=== PATIENT | female | born 2000 | race Caucasian/White ===

== ENCOUNTER 2021-08-06 03:50 | Emergency (ER) | payer OTHER ==
[~2021-08-06 03:50] MED LIST: BACTRIM DS TAB1 EACH PO; BENTYL 20MG TAB20 MG PO; IBUPROFEN600 MG PO; KEFLEX CAP 500500 MG PO; MACROBID 100 M100 MG PO; OMEPRAZOLE20 MG PO; OMEPRAZOLE40 MG PO; OMNICEF 300 MG300 MG PO; PHENERGAN 25 MG25 M1 PO; PRENATAL VITAM1 EAC5 PO; REGLAN10 MG PO; VENTOLIN HFA 66.7 GM INH; VISTARIL25 MG PO; ZOFRAN4 MG PO
[2021-08-06 04:37] LABS: HEMOGLOBIN 15.9 gm/dl (12.3-15.3); RED BLOOD COUNT 5.26 M/UL (4.00-5.10); WHITE BLOOD COUNT 12.2 K/UL (4.5-11.0)
[2021-08-06 04:53] LABS: BUN/CREATININE RATIO 21 (0-10)
[2021-08-06] MEDS ORDERED: LODINE CAP 300300 MG PO (06:00)
[2021-08-06] MEDS ORDERED: CLEOCIN HCL150 MG PO (06:00)
== END 2021-08-06 07:20 | disposition home or self-care (01) ==
LOC: ER1 03:50
PROVIDERS: Physician Assistant
DX: J35.1 Hypertrophy of tonsils (principal); R13.10 Dysphagia, unspecified; K21.9 Gastro-esophageal reflux disease without esophagitis; F17.290 Nicotine dependence, other tobacco product, uncomplicated; Z20.822 Contact with and (suspected) exposure to COVID-19
CPT/HCPCS: 0240U; 70491; 80048; 85025; 85652; 86140; 86403; 87081; 87880; 96374; 96375; 99283; J1100; Q9967

== ENCOUNTER 2022-01-15 12:49 | Emergency (ER) | payer OTHER ==
[~2022-01-15 12:49] MED LIST changes: +CLEOCIN HCL150 MG PO; +LODINE CAP 300300 MG PO
[2022-01-15 13:55] LABS: HEMOGLOBIN 16.1 gm/dl (12.3-15.3); RED BLOOD COUNT 5.28 M/UL (4.00-5.10); WHITE BLOOD COUNT 10.3 K/UL (4.5-11.0)
[2022-01-15 14:18] LABS: BUN/CREATININE RATIO 19 (0-10)
[2022-01-15] MEDS ORDERED: ZOFRAN 4 MG TAB4 MG PO (16:59)
[2022-01-15] MEDS ORDERED: BENTYL 10MG CAP10 MG PO (16:59)
== END 2022-01-15 17:10 | disposition home or self-care (01) ==
LOC: ER1 12:49
PROVIDERS: Physician Assistant Medical
DX: R10.9 Unspecified abdominal pain (principal); R11.2 Nausea with vomiting, unspecified; K21.9 Gastro-esophageal reflux disease without esophagitis; I10 Essential (primary) hypertension; J45.909 Unspecified asthma, uncomplicated
CPT/HCPCS: 80053; 81001; 84703; 85025; 96374; 96375; 99284; J1885; J2270; J2405; J2765; Q9967

== ENCOUNTER 2022-04-17 18:32 | Emergency (ER) | payer OTHER ==
[~2022-04-17 18:32] MED LIST changes: +BENTYL 10MG CAP10 MG PO; +ZOFRAN 4 MG TAB4 MG PO
[2022-04-17 19:01] LABS: HEMOGLOBIN 16.6 gm/dl (12.3-15.3); RED BLOOD COUNT 5.41 M/UL (4.00-5.10); WHITE BLOOD COUNT 17.3 K/UL (4.5-11.0)
[2022-04-17 19:24] LABS: BUN/CREATININE RATIO 18 (0-10)
[2022-04-17] MEDS ORDERED: PYRIDIUM200 MG PO (23:35)
[2022-04-17] MEDS ORDERED: CEFUROXIME500 MG PO (23:35)
[2022-04-17] MEDS ORDERED: ONDANSETRON ODT4 MG SL (23:35)
[2022-04-17] MEDS ORDERED: COLACE 100MG C100 MG PO (23:45)
== END 2022-04-18 00:04 | disposition home or self-care (01) ==
LOC: ER1 18:32
PROVIDERS: Student in an Organized Health Care Education/Training Program
DX: N39.0 Urinary tract infection, site not specified (principal); D72.829 Elevated white blood cell count, unspecified; K21.9 Gastro-esophageal reflux disease without esophagitis; Z90.49 Acquired absence of other specified parts of digestive tract; Z88.8 Allergy status to other drugs, medicaments and biological substances; Z88.5 Allergy status to narcotic agent
CPT/HCPCS: 80053; 81001; 83690; 84703; 85025; 96374; 96375; 99284; J1885; J2405; Q9967